=== PATIENT | male | born 1970 | race Caucasian/White ===

== ENCOUNTER 2021-03-25 12:22 | Inpatient (IN) | payer OTHER, SELFPAY ==
[2021-03-25] MEDS ORDERED: Dextrose 50% Abboject 50 ML SYRINGE SLOW IVP PRN (14:37)
[2021-03-25] MEDS ORDERED: Morphine 2 MG/ML VIAL SLOW IVP PRN (14:37)
[2021-03-25] MEDS ORDERED: Dextrose 5% in Water 1,000 ML IV PRN (14:37)
[2021-03-25] MEDS ORDERED: Ondansetron ODT 4 MG TAB PO PRN (14:37)
[2021-03-25] MEDS ORDERED: Ondansetron PF 4 MG/2 ML Vial IVP PRN (14:37)
[2021-03-25] MEDS ORDERED: hydrALAZINE 20 MG/ML VIAL SLOW IVP PRN (14:37)
[2021-03-25] MEDS ORDERED: Cyclobenzaprine 10 MG TAB PO PRN (14:48)
[2021-03-25] MEDS ORDERED: Ketorolac Tromethamine 30 MG/ML VIAL ONE (15:29)
[2021-03-25] MEDS ORDERED: Morphine 4 MG/ML VIAL ONE (15:30)
[2021-03-25] MEDS ORDERED: Ketorolac Tromethamine 30 MG/ML VIAL IVP SCH (15:45)
[2021-03-25] MEDS: Acetaminophen 500 MG TAB PO SCH ×2 (15:55→20:35)
[2021-03-25] MEDS: traMADol HCl 50 MG TAB PO SCH ×2 (15:56→20:36)
[2021-03-25] MEDS: Gabapentin 300 MG CAP PO SCH ×2 (15:56→20:36)
[2021-03-25] MEDS: Morphine 4 MG/ML VIAL SLOW IVP SCH ×3 (15:57→17:15)
[2021-03-25] MEDS: Sodium Chloride 0.9% 1,000 ML IV SCH (15:58)
[2021-03-25] MEDS ORDERED: Lidocaine 1% w/Epinephrine 1:100K 20 ML VIAL ONE (16:37)
[2021-03-25 17:46] VITALS: BMI 25.4
[2021-03-25] MEDS: Famotidine 20 MG TAB PO SCH (20:36)
[2021-03-25] MEDS: Senokot S 8.6-50 MG TAB PO SCH (20:36)
[2021-03-25] MEDS ORDERED: Famotidine 20 MG TAB PO SCH (21:00)
[2021-03-25] MEDS ORDERED: Ibuprofen 600 MG TAB PO SCH (22:00)
[2021-03-26] MEDS: Sodium Chloride 0.9% 1,000 ML IV SCH ×2 (00:48→10:40)
[2021-03-26] MEDS: traMADol HCl 50 MG TAB PO SCH ×4 (03:40→20:53)
[2021-03-26] MEDS: Acetaminophen 500 MG TAB PO SCH ×4 (03:40→23:20)
[2021-03-26 06:00] LABS: #Basophils 0.1 thou/uL (0.0-0.2); #Eosinphils 0.2 thou/uL (0.0-0.7); #Lymphocytes 1.9 thou/uL (1.20-3.40); #Monocytes 1.3 thou/uL (0.11-0.59); #Neutrophils 8.4 thou/uL (1.40-6.50); %Eosinophils 1.9 % (0.0-10.0); %Lymphocytes 16.2 % (21.0-51.0); %Monocytes 10.6 % (0.0-10.0); %Neutrophils 70.3 % (42.0-75.0); Mean Corpuscular Volume 93.8 fL (78.0-98.0); Mean Platelet Volume 6.6 fL (7.4-10.4); Platelet Count 251 thou/uL (130-400); RBC Distribution Width 12.7 % (11.5-14.5); Red Blood Cell (RBC) Count 4.19 mill/uL (4.70-6.10); White Blood Cell (WBC) Count 11.9 thou/uL (4.8-10.8)
[2021-03-26 06:14] LABS: Phosphorus 2.7 mg/dL (2.3-4.7)
[2021-03-26 06:16] LABS: Anion Gap 10 mmol/L (10-20); BUN (Urea Nitrogen) 10 mg/dL (8.4-25.7); Calc. Creatinine Clearance 161 mL/min (70-130); Calcium 8.5 mg/dL (7.8-10.44); Carbon Dioxide 25 mmol/L (22-29); Chloride 106 mmol/L (98-107); Glucose 103 mg/dL (70-105); Magnesium 1.9 mg/dL (1.6-2.6); Potassium 4.1 mmol/L (3.5-5.1); Sodium 137 mmol/L (136-145)
[2021-03-26] MEDS: Senokot S 8.6-50 MG TAB PO SCH ×2 (08:26→20:52)
[2021-03-26] MEDS: Polyethylene Glycol 3350 17 GM Packet PO SCH (08:26)
[2021-03-26] MEDS: Gabapentin 300 MG CAP PO SCH ×3 (08:27→20:53)
[2021-03-26] MEDS: Famotidine 20 MG TAB PO SCH ×2 (08:27→20:52)
[2021-03-26 08:58] LABS: SARS-CoV-2 PCR by NAA Not Detected (NotDetected)
[2021-03-26] MEDS ORDERED: Magnesium 2 GM/50 ML 2 GM in Premix Bag 1 BAG IVPB SCH (11:00)
[2021-03-26] MEDS: Ibuprofen 200 MG TAB PO SCH ×2 (14:35→20:53)
[2021-03-27] MEDS: traMADol HCl 50 MG TAB PO SCH ×4 (02:48→20:59)
[2021-03-27] MEDS: Acetaminophen 500 MG TAB PO SCH ×4 (05:51→23:30)
[2021-03-27] MEDS: Ibuprofen 200 MG TAB PO SCH ×3 (05:52→21:00)
[2021-03-27 07:21] LABS: #Basophils 0.1 thou/uL (0.0-0.2); #Eosinphils 0.5 thou/uL (0.0-0.7); #Lymphocytes 2.2 thou/uL (1.20-3.40); #Neutrophils 7.2 thou/uL (1.40-6.50); %Basophils 0.9 % (0.0-1.0); %Eosinophils 4.9 % (0.0-10.0); %Lymphocytes 20.2 % (21.0-51.0); %Monocytes 9.1 % (0.0-10.0); %Neutrophils 64.9 % (42.0-75.0); Hemoglobin 13.4 g/dL (14.0-18.0); Mean Corpuscular HGB CONC 32.2 g/dL (32.0-36.0); Mean Corpuscular Hemoglobin 30.1 pg (27.0-31.0); Mean Corpuscular Volume 93.2 fL (78.0-98.0); Mean Platelet Volume 7.1 fL (7.4-10.4); Platelet Count 261 thou/uL (130-400); RBC Distribution Width 12.6 % (11.5-14.5); Red Blood Cell (RBC) Count 4.45 mill/uL (4.70-6.10); White Blood Cell (WBC) Count 11.1 thou/uL (4.8-10.8)
[2021-03-27] MEDS: Gabapentin 300 MG CAP PO SCH ×3 (09:01→20:58)
[2021-03-27] MEDS: Senokot S 8.6-50 MG TAB PO SCH ×2 (09:02→20:58)
[2021-03-27] MEDS: Famotidine 20 MG TAB PO SCH ×2 (09:02→20:58)
[2021-03-27] MEDS: Polyethylene Glycol 3350 17 GM Packet PO SCH (09:03)
[2021-03-28] MEDS: traMADol HCl 50 MG TAB PO SCH ×2 (02:37→09:50)
[2021-03-28] MEDS: Acetaminophen 500 MG TAB PO SCH ×2 (05:53→12:39)
[2021-03-28] MEDS: Ibuprofen 200 MG TAB PO SCH ×2 (05:54→12:39)
[2021-03-28 08:13] VITALS: TEMP 98.4
[2021-03-28] MEDS: Polyethylene Glycol 3350 17 GM Packet PO SCH (09:47)
[2021-03-28] MEDS: Senokot S 8.6-50 MG TAB PO SCH (09:48)
[2021-03-28] MEDS: Gabapentin 300 MG CAP PO SCH (09:55)
[2021-03-28 12:08] VITALS: BP 153/95
== END 2021-03-28 13:35 | disposition home or self-care (01) | DRG 964 ==
LOC: SJJU 14:08
PROVIDERS: ADMIT Surgery; ATTEND Surgery
PROC: 0W9B30Z Drainage of Left Pleural Cavity with Drainage Device, Percutaneous Approach (ICD-10-PCS; principal; 2021-03-25)
DX: S27.2XXA Traumatic hemopneumothorax, initial encounter (principal); Z20.822 Contact with and (suspected) exposure to COVID-19; S22.42XA Multiple fractures of ribs, left side, initial encounter for closed fracture; S36.113A Laceration of liver, unspecified degree, initial encounter; S42.022A Displaced fracture of shaft of left clavicle, initial encounter for closed fracture; S42.102A Fracture of unspecified part of scapula, left shoulder, initial encounter for closed fracture; F17.210 Nicotine dependence, cigarettes, uncomplicated; V49.9XXA Car occupant (driver) (passenger) injured in unspecified traffic accident, initial encounter
CPT/HCPCS: 36415; 71045; 80048; 83735; 84100; 85025; 90471; 90732; 94640; G0009; J1885; J2270; J3475; J7050; J7620; U0003; U0005